=== PATIENT | female | born 1955 | race Caucasian/White ===

== ENCOUNTER 2020-11-13 05:55 | Day surgery (SDC) | payer OTHER ==
[2020-11-11 10:52] LABS: COVID AG,FIA SOURCE NASOPHARYNGEAL
[~2020-11-13] VITALS: Ht 152.4 cm; Wt 73.2 kg
[2020-11-13] MEDS ORDERED: ALBUTEROL SULFATE 2.5 MG/0.5 ML NEB SOLUTION NEB ONE (05:56)
[2020-11-13] MEDS ORDERED: LIDOCAINE 4% 50 ML SOLUTION TP ONE (05:56)
[2020-11-13] MEDS ORDERED: LIDOCAINE 2% 30 ML JELLY TP ONE (05:56)
[2020-11-13] MEDS ORDERED: BENZOCAINE 20% 50 MCG/SPRAY 57 GM TP ONE (05:56)
[2020-11-13] MEDS ORDERED: SODIUM CHLORIDE 0.9% 1,000 ML ONE (06:19)
[2020-11-13] MEDS ORDERED: SODIUM CHLORIDE 0.9% 1,000 ML IV ONE (06:30)
[2020-11-13] MEDS ORDERED: FLUT1BLS15 IH (07:12)
[2020-11-13] MEDS ORDERED: LOSA100T58 PO (07:12)
[2020-11-13] MEDS ORDERED: PRAZ1 PO (07:12)
[2020-11-13] MEDS ORDERED: SERT-162 PO (07:12)
[2020-11-13] MEDS ORDERED: AMLO5TAB66 PO (07:12)
[2020-11-13] MEDS ORDERED: OMEP20 PO (07:12)
[2020-11-13] MEDS ORDERED: LEVO75 PO (07:12)
[2020-11-13] MEDS ORDERED: LORA-1000 PO (07:12)
[2020-11-13] MEDS ORDERED: ALBU6.7H9 PO (07:12)
[2020-11-13] MEDS ORDERED: FentaNYL CITRATE PF 100 MCG/2 ML VIAL ONE (07:43)
[2020-11-13] MEDS ORDERED: MIDAZOLAM HCL 5 MG/ML VIAL ONE (07:43)
[2020-11-13] MEDS ORDERED: MethylPREDNISolone SOD SUCC 125 MG/2 ML VIAL IVP ONE (08:45)
[2020-11-13] MEDS ORDERED: MethylPREDNISolone SOD SUCC 125 MG/2 ML VIAL ONE (09:00)
[2020-11-13] MEDS ORDERED: OXYGEN THERAPY IH SCH (20:00)
== END 2020-11-13 10:30 | disposition home or self-care (01) ==
LOC: SURGERY 05:55
PROVIDERS: ATTEND Internal Medicine Critical Care Medicine
DX: J38.4 Edema of larynx (principal); B37.0 Candidal stomatitis; I10 Essential (primary) hypertension; E78.5 Hyperlipidemia, unspecified; Z88.6 Allergy status to analgesic agent; Z91.030 Bee allergy status; Z98.890 Other specified postprocedural states; J44.9 Chronic obstructive pulmonary disease, unspecified; E03.9 Hypothyroidism, unspecified; Z79.899 Other long term (current) drug therapy
CPT/HCPCS: 31623; 31624; 71045; 87015; 87070; 87101; 87205; 87206; 87220; 87426; 88108; 88184; 88185; 88312; C9803; J2250; J2930; J3010; J7030; J7613; Z7610